=== PATIENT | male | born 1965 ===

== ENCOUNTER 2018-05-20 00:46 | Outpatient (CLI) | payer BC | END 2018-05-20 23:59 | disposition home or self-care (01) | LOC: DIABETIC 00:46 | PROVIDERS: ATTEND Specialist | DX: E11.9 Type 2 diabetes mellitus without complications (principal); Z79.899 Other long term (current) drug therapy; Z88.2 Allergy status to sulfonamides | CPT/HCPCS: G0108 ==

== ENCOUNTER 2018-11-18 02:21 | Outpatient (CLI) | payer BC | END 2018-11-18 23:59 | disposition home or self-care (01) | LOC: DIABETIC 02:21 | PROVIDERS: ATTEND Specialist | DX: E11.65 Type 2 diabetes mellitus with hyperglycemia (principal); Z88.2 Allergy status to sulfonamides; Z79.84 Long term (current) use of oral hypoglycemic drugs | CPT/HCPCS: G0108 ==

== ENCOUNTER 2019-02-17 00:38 | Outpatient (CLI) | payer BC | END 2019-02-17 23:59 | disposition home or self-care (01) | LOC: DIABETIC 00:38 | PROVIDERS: ATTEND Specialist | DX: E11.65 Type 2 diabetes mellitus with hyperglycemia (principal); Z79.84 Long term (current) use of oral hypoglycemic drugs; Z88.2 Allergy status to sulfonamides | CPT/HCPCS: G0108 ==